=== PATIENT | female | born 1995 | race Two or more races ===

== ENCOUNTER 2020-12-23 10:01 | Emergency (ER) | payer OTHER ==
[~2020-12-23] VITALS: Ht 170.2 cm; Wt 56.7 kg
[2020-12-23] MEDS ORDERED: CORTISPORIN EAR10 M1 OPHT (14:36)
[2020-12-23] MEDS ORDERED: ALLER-TEC10 MG PO (14:36)
[2020-12-23] MEDS ORDERED: FLONASE ALLERG9.9 ML NASAL (14:36)
[2020-12-23] MEDS ORDERED: MUCINEX DM ER1 EAC1 PO (14:36)
== END 2020-12-23 14:34 | disposition home or self-care (01) ==
LOC: ER 10:01
DX: B34.9 Viral infection, unspecified (principal); R05 Cough; Z11.52 Encounter for screening for COVID-19